=== PATIENT | male | born 1975 | race Two or more races ===

== ENCOUNTER 2024-01-27 15:13 | Inpatient (IN) | payer MEDICAID, OTHER ==
[~2024-01-27] VITALS: Ht 172.7 cm; Wt 97.8 kg
[2024-01-27] MEDS: SODIUM CHLORIDE 0.9% 1,000 ML IV ONE (15:28)
[2024-01-27 15:30] VITALS: PULSE 109; RESP 22; O2SAT 97
[2024-01-27] MEDS: PANTOPRAZOLE 40 MG/10 ML VIAL INJ IV ONE (15:36)
[2024-01-27] MEDS: ONDANSETRON HCL 4 MG/2 ML VIAL IV ONE ×2 (15:37→18:52)
[2024-01-27] MEDS: MORPHINE SULFATE 4 MG/ML SYR/VIAL IV ONE ×3 (15:41→22:44)
[2024-01-27 15:53] LABS: Basophils # (auto) 0 10 ^3/uL (0-0.2); Basophils % (auto) 0.3 % (0.0-2.0); Eosinophils # (auto) 0 10 ^3/uL (0-0.8); Hematocrit 48.6 % (41.0-53.0); Hemoglobin 16.7 g/dL (13.5-17.5); Lymphocytes # (auto) 1.9 10 ^3/uL (0.4-5.4); Lymphocytes % (auto) 12.9 % (10.0-50.0); Mean Corpuscular Hemoglobin 28.9 pg (28.0-32.0); Mean Corpuscular Hgb Conc. 34.4 g/dL (32.0-36.0); Monocytes # (auto) 0.5 10 ^3/uL (0-1.3); Monocytes % (auto) 3.3 % (0.0-12.0); Neutrophils # (auto) 12.4 10 ^3/uL (1.6-8.6); Neutrophils % (auto) 83.5 % (37.0-80.0); Platelet Count (auto) 278 10^3/uL (140-450); Red Blood Cells 5.79 10^6/uL (4.5-5.90); Red Cell Distribution Width 14.1 % (11.8-14.3); White Blood Cell 14.8 10^3/uL (4.4-10.8)
[2024-01-27 16:11] LABS: Alanine Aminotransferase 19 U/L (7-40); Albumin 5.4 g/dL (3.2-4.8); Alkaline Phosphatase 98 U/L (46-116); Anion Gap 9 (5-15); Aspartate Aminotransferase 21 U/L (13-40); BUN/Creatinine Ratio 12.8 (10.0-20.0); Blood Urea Nitrogen 11 mg/dL (9-23); Calcium 10.3 mg/dL (8.7-10.4); Carbon Dioxide 23 mmol/L (20-30); Chloride 109 mmol/L (98-107); Glucose 143 mg/dL (74-106); Lipase 35 U/L (12-53); Potassium 4.9 mmol/L (3.5-5.1); Sodium 141 mmol/L (136-145)
[2024-01-27 16:12] LABS: Bilirubin, Total 0.5 mg/dL (0.2-1.0); Total Protein 8.2 g/dL (5.7-8.2)
[2024-01-27] MEDS: METOCLOPRAMIDE HCL 5MG/ml INJ 2ml VIAL IV ONE (16:13)
[2024-01-27] MEDS: LORazepam 2MG/ML-1ML VIAL IV ONE (16:13)
[2024-01-27] MEDS: SORE THROAT SPRAY 6OZ BOTTLE MT ONE (18:30)
[2024-01-27] MEDS: PIPERACILLIN-TAZO 4.5GM 100 ML IV ONE (18:51)
[2024-01-27 19:46] VITALS: PULSE 75; RESP 23; O2SAT 93
[2024-01-27 22:24] LABS: Urine Bacteria None Seen /hpf (None Seen)
[2024-01-27 22:29] LABS: Urine Blood Negative /uL (Negative); Urine Clarity Clear (Clear); Urine Color Light-Yellow (Yellow); Urine Protein, UAD Negative (Negative); Urine Specific Gravity 1.021 (1.001-1.035); Urine Urobilinogen Normal (Negative); Urine WBC <1 /hpf (0 - 3)
[2024-01-27] MEDS: PROCHLORPERAZINE EDISYLATE 5 MG/ML 2ML VIAL IV ONE (22:44)
[2024-01-27] MEDS ORDERED: NITROGLYCERIN 0.4 MG SL TAB SL PRN (23:45)
[2024-01-27] MEDS ORDERED: MORPHINE SULFATE INJ 2 MG/ml SYRG IV PRN (23:45)
[2024-01-27] MEDS ORDERED: DOCUSATE SOD 100 MG CAP PO PRN (23:45)
[2024-01-27] MEDS ORDERED: ACETAMINOPHEN 325 MG TAB PO PRN (23:45)
[2024-01-28] MEDS: SODIUM CHLORIDE 0.9% 1,000 ML IV SCH (00:13)
[2024-01-28] MEDS: cefTRIAXone 1GM/50ML D5W 50 ML IV SCH (00:13)
[2024-01-28] MEDS: MORPHINE SULFATE INJ 2 MG/ml SYRG IV PRN (04:38)
[2024-01-28] MEDS: ONDANSETRON HCL 4 MG/2 ML VIAL IV PRN (04:38)
[2024-01-28] MEDS: metroNIDAZOLE 500MG/100ML 100 ML IV SCH (06:06)
[2024-01-28 07:01] LABS: Basophils # (auto) 0.1 10 ^3/uL (0-0.2); Basophils % (auto) 0.3 % (0.0-2.0); Eosinophils # (auto) 0.1 10 ^3/uL (0-0.8); Eosinophils % (auto) 0.4 % (0.0-7.0); Hematocrit 41.6 % (41.0-53.0); Hemoglobin 14.7 g/dL (13.5-17.5); Lymphocytes % (auto) 22.1 % (10.0-50.0); Mean Corpuscular Hemoglobin 29.7 pg (28.0-32.0); Mean Corpuscular Hgb Conc. 35.2 g/dL (32.0-36.0); Mean Corpuscular Volume 84.4 fL (80.0-100.0); Monocytes % (auto) 5.4 % (0.0-12.0); Neutrophils # (auto) 13.1 10 ^3/uL (1.6-8.6); Neutrophils % (auto) 71.8 % (37.0-80.0); Nucleated Red Blood Cells % 0.1 %; Platelet Count (auto) 237 10^3/uL (140-450); Red Blood Cells 4.93 10^6/uL (4.5-5.90); Red Cell Distribution Width 14.4 % (11.8-14.3); White Blood Cell 18.2 10^3/uL (4.4-10.8)
[2024-01-28 07:09] LABS: Alanine Aminotransferase 12 U/L (7-40); Albumin 4.4 g/dL (3.2-4.8); Alkaline Phosphatase 73 U/L (46-116); Anion Gap 8 (5-15); Aspartate Aminotransferase < 8 U/L (13-40); BUN/Creatinine Ratio 10.5 (10.0-20.0); Blood Urea Nitrogen 8 mg/dL (9-23); Calcium 9.2 mg/dL (8.7-10.4); Carbon Dioxide 24 mmol/L (20-30); Chloride 109 mmol/L (98-107); Glucose 110 mg/dL (74-106); Potassium 3.3 mmol/L (3.5-5.1); Sodium 141 mmol/L (136-145)
[2024-01-28 07:10] LABS: Bilirubin, Total 0.8 mg/dL (0.2-1.0); Total Protein 6.8 g/dL (5.7-8.2)
[2024-01-28 07:43] VITALS: PULSE 60; RESP 16; O2SAT 96
[2024-01-28] MEDS: PANTOPRAZOLE 40 MG/10 ML VIAL INJ IV SCH (09:03)
[2024-01-28] MEDS: HYDROcodone-ACET 5/325MG TAB PO PRN (11:47)
[2024-01-28] MEDS: POTASSIUM CHL 20MEQ/100ML 100 ML IV SCH (12:22)
[2024-01-28 18:47] VITALS: RESP 18
[2024-01-28] MEDS ORDERED: ONDANSETRON HCL 4 MG/2 ML VIAL IV PRN (19:30)
[2024-01-28 20:00] VITALS: RESP 20
[2024-01-28 20:59] VITALS: BP 149/86; PULSE 60; RESP 20; TEMP 97.9; O2SAT 97
[2024-01-29] VITALS (8 sets, daily range): BP systolic 128–168; BP diastolic 77–104; PULSE 62–74; RESP 16–20; TEMP 97.6–98.5; O2SAT 97–99
[2024-01-29] MEDS: hydrALAZINE HCL 20 MG/ML VL IV PRN ×2 (00:10→12:28)
[2024-01-29 07:44] LABS: Basophils # (auto) 0 10 ^3/uL (0-0.2); Basophils % (auto) 0.4 % (0.0-2.0); Eosinophils # (auto) 0.1 10 ^3/uL (0-0.8); Eosinophils % (auto) 1.1 % (0.0-7.0); Hematocrit 45.3 % (41.0-53.0); Hemoglobin 15.7 g/dL (13.5-17.5); Lymphocytes # (auto) 3.5 10 ^3/uL (0.4-5.4); Lymphocytes % (auto) 32.5 % (10.0-50.0); Mean Corpuscular Hemoglobin 29.4 pg (28.0-32.0); Mean Corpuscular Hgb Conc. 34.6 g/dL (32.0-36.0); Mean Corpuscular Volume 84.9 fL (80.0-100.0); Monocytes # (auto) 0.6 10 ^3/uL (0-1.3); Monocytes % (auto) 5.5 % (0.0-12.0); Neutrophils # (auto) 6.5 10 ^3/uL (1.6-8.6); Neutrophils % (auto) 60.5 % (37.0-80.0); Platelet Count (auto) 231 10^3/uL (140-450); Red Blood Cells 5.33 10^6/uL (4.5-5.90); Red Cell Distribution Width 14.2 % (11.8-14.3); White Blood Cell 10.7 10^3/uL (4.4-10.8)
[2024-01-29 07:48] LABS: INR 1.08 (0.9-1.15); Partial Thromboplastin Time 32.6 SEC (24.5-34.5); Prothrombin Time 11.4 sec (9.3-11.8)
[2024-01-29 07:58] LABS: Alanine Aminotransferase 10 U/L (7-40); Alkaline Phosphatase 73 U/L (46-116); Anion Gap 9 (5-15); BUN/Creatinine Ratio 8.5 (10.0-20.0); Blood Urea Nitrogen 6 mg/dL (9-23); Calcium 9.3 mg/dL (8.7-10.4); Carbon Dioxide 22 mmol/L (20-30); Chloride 104 mmol/L (98-107); Glucose 115 mg/dL (74-106); Magnesium 2.1 mg/dL (1.6-2.6); Potassium 3.5 mmol/L (3.5-5.1)
[2024-01-29 07:59] LABS: Albumin 4.6 g/dL (3.2-4.8); Aspartate Aminotransferase < 8 U/L (13-40); Bilirubin, Total 0.7 mg/dL (0.2-1.0); Sodium 135 mmol/L (136-145); Total Protein 7.1 g/dL (5.7-8.2)
[2024-01-29] MEDS ORDERED: LORazepam 2MG/ML-1ML VIAL IV PRN (11:30)
[2024-01-29] MEDS: LORazepam 2MG/ML-1ML VIAL IV PRN (12:28)
[2024-01-29] MEDS: D5W/ SOD CHL 0.9%/KCL 20MEQ 1,000 ML IV SCH (14:55)
[2024-01-29] MEDS: MELATONIN 5 MG TAB PO ONE (21:18)
[2024-01-30] VITALS (8 sets, daily range): BP systolic 140–161; BP diastolic 82–102; PULSE 66–81; RESP 16–21; TEMP 97.6–98.5; O2SAT 94–99
[2024-01-30 07:10] LABS: Basophils # (auto) 0 10 ^3/uL (0-0.2); Basophils % (auto) 0.4 % (0.0-2.0); Eosinophils # (auto) 0.1 10 ^3/uL (0-0.8); Eosinophils % (auto) 0.7 % (0.0-7.0); Hematocrit 45.2 % (41.0-53.0); Hemoglobin 15.7 g/dL (13.5-17.5); Lymphocytes # (auto) 2.8 10 ^3/uL (0.4-5.4); Lymphocytes % (auto) 24.7 % (10.0-50.0); Mean Corpuscular Hemoglobin 29.1 pg (28.0-32.0); Mean Corpuscular Hgb Conc. 34.8 g/dL (32.0-36.0); Mean Corpuscular Volume 83.6 fL (80.0-100.0); Monocytes # (auto) 0.8 10 ^3/uL (0-1.3); Monocytes % (auto) 7.2 % (0.0-12.0); Neutrophils # (auto) 7.6 10 ^3/uL (1.6-8.6); Platelet Count (auto) 247 10^3/uL (140-450); Red Cell Distribution Width 13.9 % (11.8-14.3); White Blood Cell 11.3 10^3/uL (4.4-10.8)
[2024-01-30 07:38] LABS: Alanine Aminotransferase 10 U/L (7-40); Albumin 4.4 g/dL (3.2-4.8); Alkaline Phosphatase 71 U/L (46-116); Anion Gap 10 (5-15); Aspartate Aminotransferase < 8 U/L (13-40); BUN/Creatinine Ratio 10.4 (10.0-20.0); Blood Urea Nitrogen 7 mg/dL (9-23); Calcium 9.2 mg/dL (8.7-10.4); Carbon Dioxide 22 mmol/L (20-30); Chloride 106 mmol/L (98-107); Glucose 111 mg/dL (74-106); Magnesium 2.1 mg/dL (1.6-2.6); Potassium 3.4 mmol/L (3.5-5.1); Sodium 138 mmol/L (136-145)
[2024-01-30 07:39] LABS: Bilirubin, Total 0.7 mg/dL (0.2-1.0); Total Protein 7.1 g/dL (5.7-8.2)
[2024-01-30 08:40] LABS: Lipase 56 U/L (12-53)
[2024-01-30] MEDS: MELATONIN 5 MG TAB PO SCH (21:32)
[2024-01-31] VITALS (9 sets, daily range): BP systolic 120–190; BP diastolic 69–102; PULSE 62–76; RESP 15–20; TEMP 97.6–98.6; O2SAT 17–100
[2024-01-31] MEDS: POTASSIUM CHL 20MEQ/100ML 100 ML IV SCH (08:30)
[2024-01-31] MEDS ORDERED: METR-344 PO (10:25)
[2024-01-31] MEDS ORDERED: PANT40TA2 PO ×2 (10:25→17:56)
[2024-01-31] MEDS ORDERED: LIDOCAINE VISCOUS 2% 15ML UD ONE (15:32)
[2024-01-31] MEDS ORDERED: SODIUM CHLORIDE LOCK 10 ML ONE (15:32)
[2024-01-31] MEDS ORDERED: MIDAZOLAM HCL 5 MG/ML-1ML VIAL ONE (15:32)
[2024-01-31] MEDS ORDERED: diphenhdrAMINE HCL 50 MG/1 ML VL ONE (15:32)
[2024-01-31] MEDS ORDERED: fentaNYL CITRATE 100 MCG/2 ML VL ONE (15:33)
[2024-01-31] MEDS ORDERED: SUCR1TAB31 PO (17:56)
== END 2024-01-31 19:10 | disposition home or self-care (01) | DRG 241 ==
LOC: ER 15:13 → OVERFLOW 23:38 → EAST 01-28 14:57
PROVIDERS: ADMIT Nurse Practitioner Family; ATTEND Internal Medicine
PROC: 0DB68ZX Excision of Stomach, Via Natural or Artificial Opening Endoscopic, Diagnostic (ICD-10-PCS; 2024-01-31)
PROC: 0DB58ZX Excision of Esophagus, Via Natural or Artificial Opening Endoscopic, Diagnostic (ICD-10-PCS; 2024-01-31)
PROC: 0DB98ZX Excision of Duodenum, Via Natural or Artificial Opening Endoscopic, Diagnostic (ICD-10-PCS; principal; 2024-01-31 13:40)
DX: K29.81 Duodenitis with bleeding (principal); K22.11 Ulcer of esophagus with bleeding; K52.9 Noninfective gastroenteritis and colitis, unspecified; E87.1 Hypo-osmolality and hyponatremia; D72.829 Elevated white blood cell count, unspecified; K50.90 Crohn's disease, unspecified, without complications; K44.9 Diaphragmatic hernia without obstruction or gangrene; R73.9 Hyperglycemia, unspecified; E87.6 Hypokalemia; Z87.820 Personal history of traumatic brain injury
CPT/HCPCS: 36415; 43239; 71045; 74176; 80053; 81001; 83036; 83605; 83690; 83735; 84484; 85025; 85610; 85730; 86850; 86900; 86901; 87040; G0378; J2250; J2405; J2470; J2543; J3480; J3490

== ENCOUNTER 2025-05-01 04:32 | Inpatient (IN) | payer SELFPAY ==
[2025-05-01] VITALS (7 sets, daily range): BP systolic 146–161; BP diastolic 90–105; PULSE 66–93; RESP 16–20; TEMP 97.8–98.2; O2SAT 95–99
[~2025-05-01] VITALS: Ht 172.7 cm; Wt 98.8 kg
[~2025-05-01 04:32] MED LIST: METR-344 PO; PANT40TA2 PO; SUCR1TAB31 PO
[2025-05-01 05:45] LABS: Hematocrit 43.8 % (41.0-53.0); Hemoglobin 15.2 g/dL (13.5-17.5); Mean Corpuscular Hemoglobin 28.5 pg (28.0-32.0); Mean Corpuscular Volume 82.0 fL (80.0-100.0); Nucleated Red Blood Cells % 0.2 %
[2025-05-01] MEDS: KETOROLAC TROMETH 30 MG/ML 1ML VIAL IV ONE ×2 (05:54→09:45)
[2025-05-01] MEDS: ONDANSETRON HCL 4 MG/2 ML VIAL IV ONE (05:54)
[2025-05-01] MEDS: KETOROLAC TROMETH 60MG/2ML VIAL ONE (05:54)
[2025-05-01 05:56] LABS: Chloride 102 mmol/L (98-107); Potassium 4.0 mmol/L (3.5-5.1)
[2025-05-01 05:57] LABS: Anion Gap 14 (5-15); Calcium 8.9 mg/dL (8.7-10.4)
[2025-05-01 05:58] LABS: Carbon Dioxide 19 mmol/L (20-31); Sodium 135 mmol/L (136-145)
[2025-05-01 06:02] LABS: BUN/Creatinine Ratio 8.9 (10.0-20.0)
[2025-05-01 06:13] LABS: Blood Urea Nitrogen 8 mg/dL (9-23); Glucose 192 mg/dL (74-106)
--- NOTE | 2025-05-01 06:55 | ED.PDOC ---
GI ASSESSMENT HPI Comments 49 y/o M, presents to the ED for CC of abdominal pain. Patient states, he has been experiencing symptoms of abdominal pain with associated symptoms of nausea, vomiting, nasal congestion, and cough x2days. Upon arrival to the ED, patient is hypertensive with a blood pressure of 188/140mmHg; endorses taking all medications as prescribed. At this time patient c/o 10/10 diffuse abdominal pain. Patient denies fever, chills, diarrhea, constipation, shortness of breath, or chest pain. Chief Complaint: Abdominal Pain Time Seen by MD: 06:10 Reviewed Notes: Nurses Notes, Medications, Allergies Allergies: Coded Allergies: NO KNOWN ALLERGIES (Unverified , 01/27/24) Home Meds Active Scripts Sucralfate (CARAFATE) 1 Gm Tab, 1 GM PO Q6HR, #180 TAB 5 Refills Prov:NATY JONES MD 01/31/24 Pantoprazole Sodium Sesquihydr (Protonix) 40 Mg Tab, 40 MG PO BID, #60 TAB 3 Refills Prov:NATY JONES MD 01/31/24 Metronidazole (Flagyl) 500 Mg Tab, 1 TAB PO TID, #28 TAB Prov:NATY JONES MD 01/31/24 Information Source: Patient Mode of Arrival: Ambulatory Timing: Days Duration: Since onset Prehospital treatment: None Vomitus: Watery Stool: Normal Severity: Moderate Recent: None Recent Hx of: None Pain Location: Diffuse Modifying Factors: Nothing Associated sign and symptoms: Nausea, Vomiting, Abdominal Pain Past Medical History PAST MEDICAL HISTORY: Denies Surgical History: Denies all surgeries Family History Family History: Reviewed,noncontributory to illness Social History Smoker: Non-Smoker Alcohol: Denies ETOH Use Drugs: Denies Drug Use Lives In: Home Constitutional: denies: chills, diaphoresis, fatigue, fever, malaise, sweats, weakness, others EENTM: reports: nose congestion; denies: blurred vision, double vision, ear bleeding, ear discharge, ear drainage, ear pain, ear ringing, eye pain, eye redness, hearing loss, mouth pain, mouth swelling, nasal discharge, nose bleeding, nose pain, photophobia, tearing, throat pain, throat swelling, voice changes, others Respiratory: reports: cough; denies: hemoptysis, orthopnea, SOB at rest, shortness of breath, SOB with excertion, stridor, wheezing, others Cardiovascular: denies: chest pain, dizzy spells, diaphoresis, Dyspnea on exertion, edema, irregular heart beat, left arm pain, lightheadedness, p alpitations, PND, syncope, others Gastrointestinal: reports: abdominal pain, nausea, vomiting; denies: abdomen distended, blood streaked bowels, constipated, diarrhea, dysphagia, difficulty swallowing, hematemesis, melena, poor appetite, poor fluid intake, rectal bleeding, rectal pain, others Genitourinary: denies: burning, dysuria, flank pain, frequency, hematuria, incontinence, penile discharge, penile sore, pain, testicle pain, testicle swelling, urgency, others Neurological: denies: dizziness, fainting, headache, left sided numbness, left sided weakness, numbness, paresthesia, pre-existing deficit, right sided numbness, right sided weakness, seizure, speech problems, tingling, tremors, weakness, others Musculoskeletal: denies: back pain, gout, joint pain, joint swelling, muscle pain, muscle stiffness, neck pain, others Integumetry: denies: bruises, change in color, change in hair/nails, dryness, laceration, lesions, lumps, rash, wounds, others Allergic/Immunocompromised: denies: Difficulty Healing, Frequent Infections, Hives, Itching, others Hematologic/Lymphatic: denies: anemia, blood clots, easy bleeding, easy bruising, swollen glands, others Endocrine: denies: excessive hunger, excessive sweating, excessive thirst, excessive urination, flushing, intolerance to cold, intolerance to heat, unexplained weight gain, unexplained weight loss, others Psychiatric: denies: anxiety, bipolar disorder, depression, hopeless, panic disorder, schizophrenia, sleepless, suicidal, others All Other Systems: Reviewed and Negative Physical Exam General Appearance: Moderate Distress HEENT: Normal ENT Inspection, Pharynx Normal, TMs Normal Neck: Full Range of Motion, Non-Tender, Normal, Normal Inspection Respiratory: Other (Coarse breath sounds) Cardiovascular: Tachycardia Breast Exam: Deferred Gastrointestinal: No Organomegaly, Non Tender, No Pulsatile Mass, Normal Bowel Sounds, Soft Genitalia: Deferred Pelvic: Deferred Rectal: Deferred Extremities: No calf tenderness, Normal capillary refill, Normal inspection, Normal range of motion, Non-tender, No pedal edema Musculoskeletal : Apperance: Normal Neurologic: Alert, editor newspaper II-XII nml as Tested, No Motor Deficits, Normal Affect, Normal Mood, No Sensory Deficits Cerebellar Function: NOT DONE Reflexes: NOT DONE Skin: Dry, Normal Color, Warm Peripheral Pulses: 3+ Radial (R), 3+ Radial (L) Lymphatic: No Adenopathy Was a procedure done? Was a procedure done?: No GI differential Dx Differential Diagnosis: Constipation, Diverticular disease, Esophagitis, Gastritis/PUD, Gastroenteritis, Dehydration, Electrolyte Imbalance, Food Poisoning, Bacterial, Viral X-Ray, Labs, Meds, VS Vital Signs Date Time Temp Pulse Resp B/P (MAP) Pulse Ox O2 Delivery O2 Flow Rate FiO2 05/01/25 06:56 95 159/96 05/01/25 06:00 92 20 170/110 (130) 97 05/01/25 05:30 Room Air* 0 21 05/01/25 05:08 98.1 96 28 167/98 (121) 98 98.1 05/01/25 04:58 99 05/01/25 04:38 99.8 103 22 186/140 97 99.8 Lab Test 05/01/25 07:08 05/01/25 06:20 05/01/25 05:24 Range/Units Lactic Acid Level 2.0 0.4-2.0 mmol/L Troponin I High Sensitivity 8 8 </=54 ng/L White Blood Count 9.1 4.4-10.8 10^3/uL Red Blood Count 5.34 4.5-5.90 10^6/uL Hemoglobin 15.2 13.5-17.5 g/dL Hematocrit 43.8 41.0-53.0 % Mean Corpuscular Volume 82.0 80.0-100.0 fL Mean Corpuscular Hemoglobin 28.5 28.0-32.0 pg Mean Corpuscular Hemoglobin Concent 34.8 32.0-36.0 g/dL Red Cell Distribution Width 13.1 11.8-14.3 % Platelet Count 207 140-450 10^3/uL Mean Platelet Volume 8.1 6.9-10.8 fL Neutrophils (%) (Auto) 80.7 H 37.0-80.0 % Lymphocytes (%) (Auto) 10.5 10.0-50.0 % Monocytes (%) (Auto) 6.8 0.0-12.0 % Eosinophils (%) (Auto) 1.5 0.0-7.0 % Basophils (%) (Auto) 0.5 0.0-2.0 % Neutrophils # (Auto) 7.3 1.6-8.6 10 ^3/uL Lymphocytes # (Auto) 0.9 0.4-5.4 10 ^3/uL Monocytes # (Auto) 0.6 0-1.3 10 ^3/uL Eosinophils # (Auto) 0.1 0-0.8 10 ^3/uL Basophils # (Auto) 0 0-0.2 10 ^3/uL Nucleated Red Blood Cells 0.2 % Sodium Level 135 L 136-145 mmol/L Potassium Level 4.0 3.5-5.1 mmol/L Chloride Level 102 98-107 mmol/L Carbon Dioxide Level 19 L 20-31 mmol/L Anion Gap 14 5-15 Blood Urea Nitrogen 8 L 9-23 mg/dL Creatinine 0.90 0.700-1.30 mg/dL Glomerular Filtration Rate Calc 105 >90 mL/min BUN/Creatinine Ratio 8.9 L 10.0-20.0 Serum Glucose 192 H 74-106 mg/dL Calcium Level 8.9 8.7-10.4 mg/dL Current Medications Medications (Trade) Dose Ordered Sig/Miguel Route Start Time Stop Time Status Last Admin Ondansetron HCl (Zofran) 4 mg ONCE ONCE IV 05/01/25 05:15 05/01/25 05:16 DC 05/01/25 05:54 Ketorolac Tromethamine (Toradol Injection) 15 mg ONCE ONCE IV 05/01/25 05:15 05/01/25 05:17 DC 05/01/25 05:54 Labetalol HCl (Labetalol HCl) 5 mg ONCE ONCE IV 05/01/25 06:45 05/01/25 06:46 DC 05/01/25 06:56 Ceftriaxone Sodium 50 ml @ 100 mls/hr ONCE ONCE IV 05/01/25 07:00 05/01/25 07:29 DC 05/01/25 07:07 Sodium Chloride 1,000 ml @ 1,000 mls/hr Q1H ONCE IV 05/01/25 07:00 05/01/25 07:59 DC 05/01/25 07:05 Sodium Chloride 1,000 ml @ 150 mls/hr Q6H40M ONCE IV 05/01/25 07:00 05/01/25 13:39 05/01/25 07:05 Patient alert. Came in because of cough congestion high blood pressure. Blood pressure was elevated. Answering all questions. He did take his Norvasc. Was given labetalol. Blood sugar elevated. Establish intravenous access. Was given fluids. Was given Rocephin. Was given azithromycin. Explained to the patient. Continue monitoring. [address] [address] Ph: [phone] DIAGNOSTIC IMAGING Diagnostic Imaging Report : [id number] Signed PATIENT: JOSE PEARSON ACCT: [id number] UNIT: [id number] : 1975 LOC: ER ROOM / BED: / AGE / SEX: 49 / M ADM STATUS: REG ER SERVICE 0 ORDERING PHYSICIAN: NHI SALAS MD PROCEDURE(s): CXRP - CHEST PORTABLE REASON: cough ORDER NUMBER(s): [id number], ACCESSION NUMBER(s): [id number] CHEST RADIOGRAPH Indication: cough Technique: Single frontal view of the chest was obtained COMPARISON: XY CHEST PORTABLE on DOS: 01/28/24 FINDINGS: Lines and Tubes: None Lungs: Increased interstital prominence. This may represent pulmonary vascular congestion and/or viral pneumonia. Pleura: No effusion.No pneumothorax. Cardiomediastinal contours: Unremarkable Bones: Unremarkable IMPRESSION: Increased interstital prominence. This may represent pulmonary vascular congestion and/or viral pneumonia. ATED BY: ANUPAM PRATT MD DICTATED DATE/TIME: 05/01/25 075 SIGNED BY: ANUPAM PRATT MD SIGNED DATE/TIME: 05/01/25752 CC: Time of 1ST Reevaluation: 06:40 Reevaluation 1ST: Unchanged Patient Education/Counseling: Diagnosis, Treatment Family Education/Counseling: No Family Present SEPSIS Sepsis Screen Date sepsis recognized/suspect: May 01, 2025 Time Sepsis recognized/suspect: 0637 Recent Procedure: No On Antibiotic Therapy: No Respiratory Rate >20: No Heart Rate >90: Yes Temp<36 C (96.8 F) or >38.3 C: No SBP <90 or MAP <65 mmHG: No New Acute Mental Status Change: No Is the patient on CPAP, BIPAP,: No Physician Orders Vital Signs Q1HR (05/01/25 05:07) Blood Pressure (05/01/25 ) Blood Pressure (05/02/25 ) Notify Md If Abnormal Vs (05/01/25 05:07) Supervisor Beater Room (05/01/25 ) Saline Lock (05/01/25 05:07) Continous Pulse Oximetry (05/01/25 05:07) Oxygen (05/01/25 ) Titrate Oxygen (05/01/25 05:07) Blood Culture (05/01/25 06:57) Azithromycin 500mg/250ml (Zithromax 500m (05/01/25 07:00) Sodium Chloride 0.9% (05/01/25 07:00) Chest Portable (05/01/25 07:01) Vital Signs Date Time Temp Pulse Resp B/P (MAP) Pulse Ox O2 Delivery O2 Flow Rate FiO2 05/01/25 06:56 95 159/96 05/01/25 06:00 92 20 170/110 (130) 97 05/01/25 05:30 Room Air* 0 21 05/01/25 05:08 98.1 96 28 167/98 (121) 98 98.1 05/01/25 04:58 99 05/01/25 04:38 99.8 103 22 186/140 97 99.8 Laboratory Tests Test 05/01/25 05:24 05/01/25 07:08 White Blood Count 9.1 10^3/uL (4.4-10.8) Lactic Acid Level 2.0 mmol/L (0.4-2.0) Medications Medications Dose Ordered Sig/Miguel Route Start Time Stop Time Status Last Admin Dose Admin Ceftriaxone Sodium 50 ml @ 100 mls/hr ONCE ONCE IV 05/01/25 07:00 05/01/25 07:29 DC 05/01/25 07:07 Ketorolac Tromethamine 15 mg ONCE ONCE IV 05/01/25 05:15 05/01/25 05:17 DC 05/01/25 05:54 Labetalol HCl 5 mg ONCE ONCE IV 05/01/25 06:45 05/01/25 06:46 DC 05/01/25 06:56 Ondansetron HCl 4 mg ONCE ONCE IV 05/01/25 05:15 05/01/25 05:16 DC 05/01/25 05:54 Sodium Chloride 1,000 ml @ 150 mls/hr Q6H40M ONCE IV 05/01/25 07:00 05/01/25 13:39 05/01/25 07:05 Sodium Chloride 1,000 ml @ 1,000 mls/hr Q1H ONCE IV 05/01/25 07:00 05/01/25 07:59 DC 05/01/25 07:05 Departure 1 Departure Time of Disposition: 07:00 Impression: Primary Impression: Hypertensive emergency Additional Impressions: Pneumonitis Uncontrolled diabetes mellitus Qualified Codes: E13.65 - Other specified diabetes mellitus with hyperglycemia Disposition: ADMITTED INPATIENT Admit to: Med Surg Condition: Guarded Critical Care Note Critical Care Time?: Yes (90 min-critical care time only) Stability Stability form required: No Heart Score Heart Score: Heart Score Response (Comments) Value History N/A 0 EKG N/A 0 Age N/A 0 Risk Factors N/A 0 Troponin N/A 0 Total 0 I personally scribed for NHI SALAS MD ([email or web address]) on 05/01/25 at 06:55. Electronically submitted by Mery Santana ([email or web address]). I personally scribed for NHI SALAS MD ([email or web address]) on 05/01/25 at 08:23. Electronically submitted by Mery Santana [email or web address]). NHI SALSA MD May 01, 2025 06:55
[2025-05-01] MEDS: LABETALOL HCL 20 MG/4 ML VL IV ONE ×2 (06:56→09:45)
[2025-05-01] MEDS: SODIUM CHLORIDE 0.9% 1,000 ML IV ONE ×2 (07:05)
--- NOTE | 2025-05-01 07:56 | DVH ---
CHEST RADIOGRAPH Indication: cough Technique: Single frontal view of the chest was obtained COMPARISON: XY CHEST PORTABLE on DOS: 01/28/24 FINDINGS: Lines and Tubes: None Lungs: Increased interstital prominence. This may represent pulmonary vascular congestion and/or viral pneumonia. Pleura: No effusion.No pneumothorax. Cardiomediastinal contours: Unremarkable Bones: Unremarkable IMPRESSION: Increased interstital prominence. This may represent pulmonary vascular congestion and/or viral pneumonia.
[2025-05-01] MEDS ORDERED: MORPHINE SULFATE INJ 2 MG/ml SYRG IV PRN (09:30)
[2025-05-01] MEDS: AZITHROMYCIN 500MG/250ML 250 ML IV ONE (09:45)
--- NOTE | 2025-05-01 09:53 | DVHHP2 ---
History of Present Illness Reason for Visit: Abdominal pain History of Present Illness 49-year-old male presents to the ED with two day history of abdominal pain, nausea, vomiting, nasal congestion, and cough. This morning he developed abdominal pain associated with markedly elevated BP of 203/146. Patient also reports bilateral shoulder pain, worse on the left, states that he has work related injuries and is scheduled for surgery in a few weeks. In the ED, BP remained elevated and he was treated with labetalol and for hypertension and Toradol for pain. He reports taking amlodipine 10 mg daily and aspirin at home. Chest x-ray shows increased interstitial areas prominence concerning for pulmonary vascular congestion versus viral pneumonia. Past medical history includes hypertension, hyperlipidemia, traumatic brain injury, bilateral shoulder injury. Past Medical History As stated in HPI Past Surgical History Denies Family History Reviewed, non-contributory to the management of this case. Past Social History The patient lives at home, denies smoking, alcohol or illicit drugs abuse. Review of Systems Constitutional: Yes: Malaise; No: Fever, Chills, Sweats, Weakness, Other Eyes: No: Pain, Vision change, Conjunctivae inflammation, Eyelid inflammation, Other, Redness ENT: No: Ear pain, Ear discharge, Nose pain, Nose discharge, Nose congestion, Mouth pain, Mouth swelling, Throat pain, Throat swelling, Other Respiratory: Cough; No: Dry, Shortness of breath, SOB with excertion, Wheezing, Hemoptysis, Pleuritic Pain, Sputum, Wheezing, Other Cardiovascular: No: Chest Pain, Palpitations, Orthopnea, Paroxysmal Noc. Dys pnea, Edema, Lt Headedness, Other Gastrointestinal: Nausea, Vomiting, Abdominal Pain; No: Diarrhea, Constipation, Melena, Hematochezia, Other Genitourinary: No Dysuria, No Frequency, No Incontinence, No Hematuria, No Retention, No Other Musculoskeletal: shoulder pain; No: other, neck pain, arm pain, back pain, hand pain, leg pain, foot pain Skin: No: Rash, Lesions, Jaundice, Bruising, Other Neurological: No: Weakness, Numbness, Incoordination, Change in speech, Confusion, Seizures, Other Allergies: Coded Allergies: NO KNOWN ALLERGIES (Unverified , 01/27/24) Exam Vital Signs Vital Signs Date Time Temp Pulse Resp B/P (MAP) Pulse Ox O2 Delivery O2 Flow Rate FiO2 05/01/25 08:00 87 12/25/25 06:56 159/96 05/01/25 06:00 20 97 05/01/25 05:30 Room Air* 0 21 05/01/25 05:08 98.1 98.1 General Appearance: Alert, Oriented X3, Cooperative, mild distress HEENT: Atraumatic, PERRLA, EOMI Respiratory: Other (Diminished lung sounds) Cardiovascular: Normal S1, Normal S2 Abdominal: Normal bowel sounds, Soft, No tenderness Extremities: No clubbing, No cyanosis, No edema Skin: No rashes, No breakdown Neuro: Normal speech Psych/Mental Status: Mental status NL Labs/Xrays Labs Test 05/01/25 07:08 05/01/25 06:20 05/01/25 05:24 Range/Units Lactic Acid Level 2.0 0.4-2.0 mmol/L Troponin I High Sensitivity 8 </=54 ng/L White Blood Count 9.1 4.4-10.8 10^3/uL Red Blood Count 5.34 4.5-5.90 10^6/uL Hemoglobin 15.2 13.5-17.5 g/dL Hematocrit 43.8 41.0-53.0 % Mean Corpuscular Volume 82.0 80.0-100.0 fL Mean Corpuscular Hemoglobin 28.5 28.0-32.0 pg Mean Corpuscular Hemoglobin Concent 34.8 32.0-36.0 g/dL Red Cell Distribution Width 13.1 11.8-14.3 % Platelet Count 207 140-450 10^3/uL Mean Platelet Volume 8.1 6.9-10.8 fL Neutrophils (%) (Auto) 80.7 H 37.0-80.0 % Lymphocytes (%) (Auto) 10.5 10.0-50.0 % Monocytes (%) (Auto) 6.8 0.0-12.0 % Eosinophils (%) (Auto) 1.5 0.0-7.0 % Basophils (%) (Auto) 0.5 0.0-2.0 % Neutrophils # (Auto) 7.3 1.6-8.6 10 ^3/uL Lymphocytes # (Auto) 0.9 0.4-5.4 10 ^3/uL Monocytes # (Auto) 0.6 0-1.3 10 ^3/uL Eosinophils # (Auto) 0.1 0-0.8 10 ^3/uL Basophils # (Auto) 0 0-0.2 10 ^3/uL Nucleated Red Blood Cells 0.2 % Sodium Level 135 L 136-145 mmol/L Potassium Level 4.0 3.5-5.1 mmol/L Chloride Level 102 98-107 mmol/L Carbon Dioxide Level 19 L 20-31 mmol/L Anion Gap 14 5-15 Blood Urea Nitrogen 8 L 9-23 mg/dL Creatinine 0.90 0.700-1.30 mg/dL Glomerular Filtration Rate Calc 105 >90 mL/min BUN/Creatinine Ratio 8.9 L 10.0-20.0 Serum Glucose 192 H 74-106 mg/dL Calcium Level 8.9 8.7-10.4 mg/dL PROCEDURE(s): CXRP - CHEST PORTABLE REASON: cough ORDER NUMBER(s): [id number], ACCESSION NUMBER(s): [id number] CHEST RADIOGRAPH Indication: cough Technique: Single frontal view of the chest was obtained COMPARISON: XY CHEST PORTABLE on DOS: 01/28/24 FINDINGS: Lines and Tubes: None Lungs: Increased interstital prominence. This may represent pulmonary vascular congestion and/or viral pneumonia. Pleura: No effusion.No pneumothorax. Cardiomediastinal contours: Unremarkable Bones: Unremarkable IMPRESSION: Increased interstital prominence. This may represent pulmonary vascular congestion and/or viral pneumonia. SEPSIS Sepsis Screen Date sepsis recognized/suspect: May 01, 2025 Time Sepsis recognized/suspect: 0637 Recent Procedure: No On Antibiotic Therapy: No Respiratory Rate >20: No Heart Rate >90: Yes Temp<36 C (96.8 F) or >38.3 C: No SBP <90 or MAP <65 mmHG: No New Acute Mental Status Change: No Is the patient on CPAP, BIPAP,: No Physician Orders Vital Signs Q1HR (05/01/25 05:07) Blood Pressure (05/01/25 ) Blood Pressure (05/02/25 ) Notify Md If Abnormal Vs (05/01/25 05:07) Physician Intensivist (05/01/25 ) Saline Lock (05/01/25 05:07) Continous Pulse Oximetry (05/01/25 05:07) Oxygen (05/01/25 ) Titrate Oxygen (05/01/25 05:07) Blood Culture (05/01/25 06:57) Sodium Chloride 0.9% (05/01/25 07:00) Chest Portable (05/01/25 07:01) Covid19 Antigen Jane (05/01/25 ) Rapid Influenza A&B (05/01/25 09:11) Admit (05/01/25 09:29) Code Status (05/01/25 09:29) Hydrocodone-Acet 5/325mg Tab ([place] /32 (05/01/25 09:30) Ondansetron Hcl (Zofran) (05/01/25 09:30) Complete Blood Count (05/02/25 04:00) Comprehensive Metabolic Panel (05/02/25 04:00) Condition: Fair (05/01/25 09:29) Acetaminophen Tablet (Tylenol Tablet) (05/01/25 09:30) Clear Liq Diet (05/01/25 Breakfast) Morphine Sulfate Injection (05/01/25 09:30) Hydralazine Injection (Apresoline Inject (05/01/25 09:30) Amlodipine Tablet (Norvasc Tablet) (05/02/25 10:00) L Shoulder 2+ View Xray (05/01/25 09:29) R Shoulder 2+ View Xray (05/01/25 09:29) Ct Ab Pel Wo Con-No Oral Or Iv (05/01/25 09:29) Respiratory Culture W/ Gs (05/01/25 09:29) Azithromycin 500mg/250ml (Zithromax 500m (05/02/25 10:00) Ceftriaxone Ivpb Rocephin (05/02/25 09:00) Chest Portable (05/02/25 04:00) Vital Signs Date Time Temp Pulse Resp B/P (MAP) Pulse Ox O2 Delivery O2 Flow Rate FiO2 05/01/25 08:00 87 05/01/25 06:56 95 159/96 05/01/25 06:00 92 20 170/110 (130) 97 05/01/25 05:30 Room Air* 0 21 05/01/25 05:08 98.1 96 28 167/98 (121) 98 98.1 05/01/25 04:58 99 05/01/25 04:38 99.8 103 22 186/140 97 99.8 Laboratory Tests Test 05/01/25 05:24 05/01/25 07:08 White Blood Count 9.1 10^3/uL (4.4-10.8) Lactic Acid Level 2.0 mmol/L (0.4-2.0) Medications Medications Dose Ordered Sig/Miguel Route Start Time Stop Time Status Last Admin Dose Admin Ceftriaxone Sodium 50 ml @ 100 mls/hr ONCE ONCE IV 05/01/25 07:00 05/01/25 07:29 DC 05/01/25 07:07 100 MLS/HR Ketorolac Tromethamine 15 mg ONCE ONCE IV 05/01/25 05:15 05/01/25 05:17 DC 05/01/25 05:54 15 MG Labetalol HCl 5 mg ONCE ONCE IV 05/01/25 06:45 05/01/25 06:46 DC 05/01/25 06:56 5 MG Ondansetron HCl 4 mg ONCE ONCE IV 05/01/25 05:15 05/01/25 05:16 DC 05/01/25 05:54 4 MG Sodium Chloride 1,000 ml @ 150 mls/hr Q6H40M ONCE IV 05/01/25 07:00 05/01/25 13:39 05/01/25 07:05 150 MLS/HR Sodium Chloride 1,000 ml @ 1,000 mls/hr Q1H ONCE IV 05/01/25 07:00 05/01/25 07:59 DC 05/01/25 07:05 1,000 MLS/HR Assessment/Plan Assessment/Plan #Accelerated hypertension, now mildly controlled, ?Pain related # hypertension Admit to telemetry unit Continue with amlodipine Hydralazine as needed DASH diet # acute abdominal pain with nausea and vomiting Possible related to hypertensive crisis CT abdomen and pelvis pending Antiemetics Clear liquid diet and advance as tolerated 1/2 NS IVF PPI # possible pneumonia versus pulmonary congestion # rule out COVID # rule out influenza a and B Empiric antibiotic Blood, sputum culture Repeat chest x-ray in a.m. # acute on chronic bilateral shoulder pain Shoulder x-ray pending Pain control # hyperlipidemia Check lipid panel # obesity, class I Lifestyle modification with diet, regular exercise, weight loss # hx of TBI Medical plan discussed with patient and RN Plan discussed with: Patient My Orders Orders - RIMA [employer] Procedure Category Date Status Time Covid19 Antigen Jane LAB 05/01/25 Logged Rapid Influenza A&B LAB 05/01/25 Logged 09:11 Admit ADMIT 05/01/25 Transmitted 09:29 Code Status CODE 05/01/25 Transmitted 09:29 Hydrocodone-Acet PHA 05/01/25 Transmitted 5/325mg Tab ([place] 09:30 Ondansetron Hcl PHA 05/01/25 Verified (Zofran) 09:30 Complete Blood Count LAB 05/02/25 Verified 04:00 Comprehensive LAB 05/02/25 Verified Metabolic Panel 04:00 Condition: Fair NIKKI 05/01/25 Verified 09:29 Acetaminophen Tablet PHA 05/01/25 Verified (Tylenol Tablet) 09:30 Clear Liq Diet DIET 05/01/25 Verified Breakfast Morphine Sulfate PHA 05/01/25 Verified Injection 09:30 Hydralazine Injection PHA 05/01/25 Verified (Apresoline Inject 09:30 Amlodipine Tablet PHA 05/02/25 Verified (Norvasc Tablet) 10:00 L Shoulder 2+ View XY 05/01/25 Verified Xray 09:29 R Shoulder 2+ View XY 05/01/25 Verified Xray 09:29 Ct Ab Pel Wo Con-No CT 05/01/25 Verified Oral Or Iv 09:29 Respiratory Culture EKITH 05/01/25 Verified W/ Gs 09:29 Azithromycin PHA 05/02/25 Verified 500mg/250ml 10:00 Ceftriaxone Ivpb PHA 05/02/25 Verified Rocephin 09:00 Chest Portable XY 05/02/25 Verified 04:00 Date of Service: May 01, 2025 Billing Provider: RIMA ADAME [employer] Common Visit Codes: [id number] INP/OBS CARE (HIGH) RIMA [employer]AME [employer] May 01, 2025 09:53
[2025-05-01 11:11] LABS: Cholesterol 218 mg/dL (< 200); HDL Cholesterol 37 mg/dL (40-59); Triglycerides 582 mg/dL (< 150)
--- NOTE | 2025-05-01 11:14 | DVH ---
CLINICAL HISTORY: shoulder pain TECHNIQUE: 2 views of the right shoulder were obtained. COMPARISON: None FINDINGS: No acute fracture or dislocation is seen. No soft tissue abnormality is evident. There are no significant degenerative changes. IMPRESSION: NO ACUTE RADIOGRAPHIC ABNORMALITY OF THE RIGHT SHOULDER.
--- NOTE | 2025-05-01 11:14 | DVH ---
CLINICAL HISTORY: shoulder pain TECHNIQUE: 2 views of the left shoulder were obtained. COMPARISON: XY R SHOULDER 2+ VIEW XRAY on DOS: 05/01/25 FINDINGS: No acute fracture or dislocation is seen. No soft tissue abnormality is evident. There are no significant degenerative changes. IMPRESSION: NO ACUTE RADIOGRAPHIC ABNORMALITY OF THE LEFT SHOULDER.
[2025-05-01 11:21] LABS: COVID19 ANTIGEN SOFIA FIA NEGATIVE (NEGATIVE)
--- NOTE | 2025-05-01 12:09 | DVH ---
CLINICAL HISTORY: abd pain TECHNIQUE: CT of the abdomen and pelvis was performed without IV contrast. This exam was performed according to our departmental dose optimization program. Up-to-date CT equipment and radiation dose reduction techniques are utilized as appropriate. CTDI 19 DLP 947 COMPARISON: CT CT AB PEL WO CON-NO ORAL OR IV on DOS: 01/27/24 FINDINGS: Abdomen/Pelvis: The spleen, pancreas, adrenal glands, gallbladder, liver, kidneys, bladder, and prostate gland are grossly unremarkable. The abdominal aorta is normal in course and caliber. There are no significant atherosclerotic calcifications. There is no free intraperitoneal air or fluid. There is no enlarged abdominal pelvic lymph node. There is no bowel wall thickening or dilatation. The appendix is normal. There is mild sigmoid colon diverticulosis. There is a moderate amount of stool in the colon. Other: The imaged lower thorax demonstrates minimal atelectatic changes at both lung bases. No acute osseous abnormality is evident. IMPRESSION: No acute noncontrast CT abnormality in the abdomen / pelvis. Constipation. Mild sigmoid colon diverticulosis.
[2025-05-01] MEDS: hydrALAZINE HCL 20 MG/ML VL IV PRN (12:36)
[2025-05-01] MEDS: PANTOPRAZOLE 40 MG/10 ML VIAL INJ IV ONE (12:36)
[2025-05-01] MEDS: ACETAMINOPHEN 325 MG TAB PO PRN (15:02)
[2025-05-01] MEDS: SOD CHL 0.45% 1,000 ML IV SCH (15:39)
[2025-05-01] MEDS: MORPHINE SULFATE 4 MG/ML SYR/VIAL IV PRN (16:30)
[2025-05-01] MEDS ORDERED: AMLO1TAB22 PO (16:51)
[2025-05-01] MEDS ORDERED: LIDO5PAD12 EX (16:51)
[2025-05-01] MEDS: HYDROcodone-ACET 5/325MG TAB PO PRN (18:55)
[2025-05-01] MEDS: MELATONIN 5 MG TAB PO ONE (21:25)
[2025-05-02] VITALS (9 sets, daily range): BP systolic 119–174; BP diastolic 71–115; PULSE 81–96; RESP 16–20; TEMP 97.4–99.4; O2SAT 92–98
[2025-05-02 06:51] LABS: Hematocrit 44.8 % (41.0-53.0); Hemoglobin 15.5 g/dL (13.5-17.5); Mean Corpuscular Hemoglobin 28.5 pg (28.0-32.0); Mean Corpuscular Volume 82.6 fL (80.0-100.0); Nucleated Red Blood Cells % 0.1 %
--- NOTE | 2025-05-02 07:01 | DVH ---
CHEST RADIOGRAPH INDICATION: possible pna TECHNIQUE: Single frontal view of the chest was obtained COMPARISON: XY CHEST PORTABLE on DOS: 05/01/25, XY CHEST PORTABLE on DOS: 01/28/24 FINDINGS: Lines and Tubes: None Lungs: Clear Pleura: No effusion. No pneumothorax. Cardiomediastinal contours: Unremarkable Bones: Unremarkable IMPRESSION: 1. No acute disease.
[2025-05-02 07:14] LABS: Alanine Aminotransferase 31 U/L (7-40); Albumin 4.4 g/dL (3.2-4.8); Alkaline Phosphatase 82 U/L (46-116); Anion Gap 9 (5-15); BUN/Creatinine Ratio 7.1 (10.0-20.0); Calcium 9.0 mg/dL (8.7-10.4); Carbon Dioxide 26 mmol/L (20-31); Chloride 101 mmol/L (98-107); Potassium 4.0 mmol/L (3.5-5.1); Total Protein 7.3 g/dL (5.7-8.2)
[2025-05-02 07:15] LABS: Bilirubin, Total 0.5 mg/dL (0.2-1.0)
[2025-05-02 07:34] LABS: Blood Urea Nitrogen 6 mg/dL (9-23); Glucose 137 mg/dL (74-106); Sodium 136 mmol/L (136-145)
[2025-05-02] MEDS: ONDANSETRON HCL 4 MG/2 ML VIAL IV PRN (08:37)
[2025-05-02] MEDS: AZITHROMYCIN 500MG/250ML 250 ML IV SCH (10:22)
[2025-05-02] MEDS: PANTOPRAZOLE 40 MG/10 ML VIAL INJ IV SCH (10:22)
--- NOTE | 2025-05-02 15:03 | DVHPN2 ---
Subjective Patient continues to have generalized weakness. Nausea and vomiting has resolved. Reviewed: Care Plan, H&P, Labs Changes from previous H/P or p: No Changes General: Per HPI Eyes: No Pain, No Vision change, No Conjunctivae inflammation, No Eyelid inflammation, No Other, No Redness ENT: No Ear pain, No Ear discharge, No Nose pain, No Nose discharge, No Nose congestion, No Mouth pain, No Mouth swelling, No Throat pain, No Throat swelling, No Other Cardiovascular: No Chest Pain, No Palpitations, No Orthopnea, No Paroxysmal Noc. Dyspnea, No Edema, No Lt Headedness, No Other Respiratory: Cough; No Dry, No Shortness of breath, No SOB with excertion, No Wheezing, No Hemoptysis, No Pleuritic Pain, No Sputum, No Other Gastrointestinal: Nausea, Vomiting, Abdominal Pain; No Diarrhea, No Constipation, No Melena, No Hematochezia, No Other Genitourinary: No Dysuria, No Frequency, No Incontinence, No Hematuria, No Retention, No Other Musculoskeletal: No other, No neck pain; shoulder pain; No arm pain, No back pain, No hand pain, No leg pain, No foot pain Skin: No Rash, No Lesions, No Jaundice, No Bruising, No Other Objective Vitals Vital Signs Date Time Temp Pulse Resp B/P (MAP) Pulse Ox O2 Delivery O2 Flow Rate FiO2 05/02/25 13:14 97.4 84 20 133/92 (106) 94 97.4 05/01/25 16:26 Room Air* 0 21 Intake/Output Intake and Output 05/02/25 07:00 Intake Total 950 ml Output Total 325 ml Balance 625 ml Intake Oral 950 ml Output Urine Total 325 ml # Voids 4 General Appearance: Alert, Oriented X3, Cooperative, mild distress HEENT: Atraumatic, PERRLA Lungs: Clear to auscultation, Normal air movement Cardiovascular: Normal S1, Normal S2 Abdomen: Normal bowel sounds, Soft, No tenderness, No hepatospenomegaly Genitourinary: No Apparent Abnormalities Musculoskeletal: Normal sensory function, Normal motor function Skin: Dry, Intact Psych/Mental Status: Mental status NL, Mood NL Medications Current Medications Medications Dose Ordered Sig/Miguel Route Start Time Stop Time Status Last Admin Dose Admin Acetaminophen/ Hydrocodone Bitart 1 tab Q4HP PRN PO 05/01/25 09:30 05/02/25 14:10 1 TAB Ondansetron HCl 4 mg Q4HP PRN IV 05/01/25 09:30 05/02/25 12:46 4 MG Acetaminophen 650 mg Q6HP PRN PO 05/01/25 09:30 05/02/25 03:24 650 MG Hydralazine HCl 10 mg Q6HP PRN IV 05/01/25 09:30 05/02/25 06:29 10 MG Amlodipine Besylate 10 mg DAILY PO 05/02/25 10:00 05/02/25 10:23 10 MG Azithromycin 250 ml @ 125 mls/hr DAILY IV 05/02/25 10:00 05/02/25 10:22 125 MLS/HR Ceftriaxone Sodium 50 ml @ 100 mls/hr DAILY@09 IV 05/02/25 09:00 05/02/25 08:34 100 MLS/HR Sodium Chloride 1,000 ml @ 100 mls/hr Q10H IV 05/01/25 10:00 05/01/25 15:39 100 MLS/HR Pantoprazole Sodium 40 mg DAILY IV 05/02/25 10:00 05/02/25 10:22 40 MG Morphine Sulfate 2 mg Q4HPRN PRN IV 05/01/25 16:30 05/01/25 21:24 2 MG Laboratory Results Laboratory Tests 05/02/25 06:24 Chemistry Test 05/02/25 06:24 Albumin 4.4 g/dL (3.2-4.8) Calcium Level 9.0 mg/dL (8.7-10.4) Total Protein 7.3 g/dL (5.7-8.2) LFT Test 05/02/25 06:24 Alanine Aminotransferase (ALT) 31 U/L (7-40) Alkaline Phosphatase 82 U/L (46-116) Aspartate Amino Transferase (AST) 21 U/L (13-40) Total Bilirubin 0.5 mg/dL (0.2-1.0) Microbiology Microbiology Date/Time Source Procedure Growth Status 05/01/25 07:14 Blood Blood Culture - Preliminary NO GROWTH AFTER 24 HOURS OF INCUBATION. Resulted Labs and/or images reviewed: Labs reviewed by me, Image(s) reviewed by me Assessment/Plan Assessment/Plan Impression: -influenza a viral pneumonia -hypertensive crisis -primary hypertension -obesity Plan: -patient continues to have generalized body aches and some dyspnea. Reports nausea and vomiting has resolved. -stop Rocephin, start Tamiflu per protocol -continue antihypertensives -reassess for discharge in a.m. Total time spent with patient discussing and formulating plan of care: 35 minutes. This medical document was created using an electronic medical record system with [employer] dictation system. Although this document has been carefully reviewed, there may still be some phonetic and typographical errors. These areas are purely typographical due to imperfections of the software programs, and do not reflect any compromise in the patient's medical care. Plan discussed with: Patient, Other (RN) Date of Service: May 02, 2025 Billing Provider: MARCIAL RIVERA NP Common Visit Codes: 54917-[id number] INP/OBS CARE(HIGH) MARCIAL RIVERA NP May 02, 2025 15:03
[2025-05-02] MEDS: OSELTAMIVIR 75 MG CAP PO SCH (21:18)
[2025-05-03 01:00] VITALS: BP 147/87; PULSE 73; RESP 16; TEMP 97.5; O2SAT 97
[2025-05-03 05:00] VITALS: BP 140/87; PULSE 74; RESP 18; TEMP 97.5; O2SAT 98
[2025-05-03 08:00] VITALS: PULSE 71
[2025-05-03 08:35] VITALS: BP 127/81; PULSE 71; RESP 20; TEMP 97.8; O2SAT 95
[2025-05-03] MEDS ORDERED: OSEL75CA5 PO (09:50)
[2025-05-03] MEDS ORDERED: AMLO1TAB23 PO (09:50)
--- NOTE | 2025-05-03 09:55 | DVHDS2 ---
Discharge Summary Date of Admission May 01, 2025 at 09:29 Date of Discharge: May 03, 2025 Admitting Diagnosis Acute abdominal pain Labs/Diagnostic Data: Laboratory Results Test 05/02/25 06:24 05/01/25 10:25 05/01/25 07:08 05/01/25 06:20 White Blood Count 7.2 10^3/uL (4.4-10.8) Red Blood Count 5.42 10^6/uL (4.5-5.90) Hemoglobin 15.5 g/dL (13.5-17.5) Hematocrit 44.8 % (41.0-53.0) Mean Corpuscular Volume 82.6 fL (80.0-100.0) Mean Corpuscular Hemoglobin 28.5 pg (28.0-32.0) Mean Corpuscular Hemoglobin Concent 34.5 g/dL (32.0-36.0) Red Cell Distribution Width 13.2 % (11.8-14.3) Platelet Count 181 10^3/uL (140-450) Mean Platelet Volume 8.2 fL (6.9-10.8) Neutrophils (%) (Auto) 74.3 % (37.0-80.0) Lymphocytes (%) (Auto) 18.0 % (10.0-50.0) Monocytes (%) (Auto) 7.1 % (0.0-12.0) Eosinophils (%) (Auto) 0.2 % (0.0-7.0) Basophils (%) (Auto) 0.4 % (0.0-2.0) Neutrophils # (Auto) 5.4 10 ^3/uL (1.6-8.6) Lymphocytes # (Auto) 1.3 10 ^3/uL (0.4-5.4) Monocytes # (Auto) 0.5 10 ^3/uL (0-1.3) Eosinophils # (Auto) 0 10 ^3/uL (0-0.8) Basophils # (Auto) 0 10 ^3/uL (0-0.2) Nucleated Red Blood Cells 0.1 % Sodium Level 136 mmol/L (136-145) Potassium Level 4.0 mmol/L (3.5-5.1) Chloride Level 101 mmol/L (98-107) Carbon Dioxide Level 26 mmol/L (20-31) Anion Gap 9 (5-15) Blood Urea Nitrogen 6 mg/dL (9-23) Creatinine 0.84 mg/dL (0.700-1.30) Glomerular Filtration Rate Calc 108 mL/min (>90) BUN/Creatinine Ratio 7.1 (10.0-20.0) Serum Glucose 137 mg/dL (74-106) Calcium Level 9.0 mg/dL (8.7-10.4) Total Bilirubin 0.5 mg/dL (0.2-1.0) Aspartate Amino Transferase (AST) 21 U/L (13-40) Alanine Aminotransferase (ALT) 31 U/L (7-40) Alkaline Phosphatase 82 U/L (46-116) Total Protein 7.3 g/dL (5.7-8.2) Albumin 4.4 g/dL (3.2-4.8) Influenza Type A Antigen Positive (Negative) Influenza Type B Antigen Negative (Negative) SARS-CoV-2 Antigen (Rapid) Negative (NEGATIVE) Lactic Acid Level 2.0 mmol/L (0.4-2.0) Troponin I High Sensitivity 8 ng/L (</=54) Test 05/01/25 05:24 Triglycerides Level 582 mg/dL (< 150) Cholesterol Level 218 mg/dL (< 200) LDL Cholesterol mg/dL (< 100) HDL Cholesterol 37 mg/dL (40-59) Other Laboratory Tests 05/02/25 06:24 Brief Hx & Hospital Course: History of Present Illness 49-year-old male presents to the ED with two day history of abdominal pain, nausea, vomiting, nasal congestion, and cough. This morning he developed abdominal pain associated with markedly elevated BP of 203/146. Patient also reports bilateral shoulder pain, worse on the left, states that he has work related injuries and is scheduled for surgery in a few weeks. In the ED, BP remained elevated and he was treated with labetalol and for hypertension and Toradol for pain. He reports taking amlodipine 10 mg daily and aspirin at home. Chest x-ray shows increased interstitial areas prominence concerning for pulmonary vascular congestion versus viral pneumonia. Past medical history includes hypertension, hyperlipidemia, traumatic brain injury, bilateral shoulder injury. Course of hospitalization: Patient was found to be influenza A positive. Patient was continued on azithromycin with the addition of Tamiflu 75 mg p.o. twice a day. Patient was also started on amlodipine 10 mg p.o. daily with the patient's blood pressure now controlled. Patient's symptoms have improved today, for which she will be discharged home and be continued on Tamiflu for four additional days. Patient will also be given a prescription for amlodipine 10 mg p.o. daily. He is instructed to follow up with the discharge Clinic in one week and obtain a PCP. He is agreeable with discharge plan. Questions answered. Physical examination General: Alert and Oriented x3. No acute distress. Well-nourished. Obese Eyes: EOMI. Anicteric. HENT: Moist mucous membranes. Lungs: Clear to auscultation bilaterally. No accessory muscle use. Cardiovascular: Regular rate and rhythm. No murmur. No JVD. Abdomen: Soft, non-tender and non-distended. No palpable masses. Extremities: No edema. Non-tender. Skin: No rashes or lesions. Warm. Neurologic: No focal neurological deficits. CN II-XII grossly intact, but not individually tested. Psychiatric: Cooperative. Appropriate mood and affect. Total time spent with patient discussing and formulating plan of care: 35 minutes. This medical document was created using an electronic medical record system with [employer] dictation system. Although this document has been carefully reviewed, there may still be some phonetic and typographical errors. These areas are purely typographical due to imperfections of the software programs, and do not reflect any compromise in the patient's medical care. Condition at Discharge: Fair Final Diagnosis/Problems List Influenza a viral pneumonia -hypertensive crisis -primary hypertension -obesity Discharge Disposition: Home Discharge Instruct/Medications Diet: Cardiac 2g Na,low cholest Activity: No Restrictions, As Tolerated Follow Up/Referral: Follow up with the discharge Clinic in one week Instructed to obtain a PCP Medications: Amlodipine 10 mg p.o. daily Tamiflu 75 mg p.o. twice a day for four additional days Scheduled Amlodipine Besylate (Amlodipine Besylate), 10 MG PO DAILY, (Reported) Amlodipine Besylate (Amlodipine Besylate), 1 TAB PO DAILY Lidocaine (Lidocaine Patch 5%), 5 % EX DAILY, (Reported) Oseltamivir Phosphate (Tamiflu), 1 CAP PO BID 36 Discharge Statement: "Patient was advised to return to the ER or call 911 if any headaches, dizziness, shortness of breath, chest pain, abdominal pain, bleeding, fevers, or worsening of medical condition. Patient was counseled about treatment plan, medications, possible side effects, patientverbalized understanding. All questions were answered to the best of my ability. This discharge took greater then 30 minutes in planning, reviewing documentation, counseling the patient, and discussing with other team members." ASSESSMENT ASSESSMENT Assessment Influenza a viral pneumonia Date of Service: May 03, 2025 Billing Provider: MARCIAL RIVERA NP Common Visit Codes: 88728-DVF/OBS DISCH DAY >30min MARCIAL RIVERA NP May 03, 2025 09:55
[2025-05-03 10:31] VITALS: BP 127/81; PULSE 92; TEMP 36.6
== END 2025-05-03 10:45 | disposition home or self-care (01) | DRG 304 ==
LOC: ER 04:32 → OVERFLOW 09:29 → TELE-CENTR 16:17
PROVIDERS: ADMIT Nurse Practitioner Acute Care; ATTEND Nurse Practitioner Acute Care
DX: I16.1 Hypertensive emergency (principal); J10.08 Influenza due to other identified influenza virus with other specified pneumonia; J12.9 Viral pneumonia, unspecified; E11.65 Type 2 diabetes mellitus with hyperglycemia; E66.811 Obesity, class 1; I10 Essential (primary) hypertension; E78.5 Hyperlipidemia, unspecified; Z20.822 Contact with and (suspected) exposure to COVID-19; M25.511 Pain in right shoulder; M25.512 Pain in left shoulder; J98.4 Other disorders of lung; Z87.820 Personal history of traumatic brain injury; Z68.33 Body mass index [BMI] 33.0-33.9, adult; Z79.899 Other long term (current) drug therapy
CPT/HCPCS: 36415; 71045; 73030; 74176; 80048; 80053; 80061; 83605; 84484; 85025; 87040; 87426; 87804; 96374; 96375; 99291; 99292; G0378; J1885; J2405; J2470